=== PATIENT | male | born 1955 | race Caucasian/White ===

== ENCOUNTER → 2017-01-23 | Outpatient (CLI) | payer OTHER ==
[~2017-01-23] MED LIST: ALBU8.5H5 INH; IBUP200C8 PO; LORA1TAB PO
[2017-01-23 17:02] LABS: BLOOD UREA NITROGEN 18 mg/dL (7-18)
[2017-01-23 17:03] LABS: ASPARTATE AMINO TRANSFERASE 17 U/L (15-37); C-REACTIVE PROTEIN, QUANT 0.18 mg/dL (0.02-0.49)
== END | disposition home or self-care (01) ==
LOC: LAB 16:30
PROVIDERS: ATTEND Internal Medicine Rheumatology
DX: M06.9 Rheumatoid arthritis, unspecified (principal); E53.8 Deficiency of other specified B group vitamins; E55.9 Vitamin D deficiency, unspecified; Z79.899 Other long term (current) drug therapy
CPT/HCPCS: 36415; 80053; 82306; 82607; 85025; 85651; 86140

== ENCOUNTER → 2017-05-13 | Outpatient (CLI) | payer OTHER ==
[2017-05-13 06:12] LABS: HEMATOCRIT 46.1 % (39.2-51.8); HEMOGLOBIN 15.5 g/dL (13.7-18.0); WHITE BLOOD COUNT 6.8 x10^3/uL (3.4-10)
[2017-05-13 06:22] LABS: BLOOD UREA NITROGEN 16 mg/dL (7-18)
[2017-05-13 06:26] LABS: ASPARTATE AMINO TRANSFERASE 11 U/L (15-37); C-REACTIVE PROTEIN, QUANT 0.11 mg/dL (0.02-0.49)
== END | disposition home or self-care (01) ==
LOC: LAB 05:41
PROVIDERS: ATTEND Internal Medicine Rheumatology
DX: M06.9 Rheumatoid arthritis, unspecified (principal); Z79.899 Other long term (current) drug therapy
CPT/HCPCS: 36415; 80053; 85025; 85651; 86140

== ENCOUNTER 2018-01-03 11:38 | Inpatient (IN) | payer MEDICARE, OTHER ==
[~2018-01-03] VITALS: Ht 177.8 cm; Wt 92.5 kg
[2018-01-03] MEDS ORDERED: KETOROLAC 30 MG/1 ML ONE (12:30)
[2018-01-03] MEDS ORDERED: methylPREDNISolone SOD SUCC 125 MG/2 ML ONE (12:30)
[2018-01-03] MEDS ORDERED: KETOROLAC 60 MG/2 ML IVPush ONE (12:30)
[2018-01-03] MEDS ORDERED: methylPREDNISolone SOD SUCC 125 MG/2 ML IVPush ONE (12:30)
[2018-01-03] MEDS ORDERED: ONDANSETRON ODT 4 MG PO PRN ×2 (12:30→17:30)
[2018-01-03] MEDS ORDERED: ONDANSETRON ODT 4 MG ONE (12:30)
[2018-01-03] MEDS ORDERED: HYDROmorphone 2 MG/ML, 1ML ONE ×2 (12:30→14:12)
[2018-01-03] MEDS: HYDROmorphone 1 MG/ML, 1ML IVPush PRN ×2 (12:35→14:17)
[2018-01-03 12:37] LABS: BASOPHILS # (AUTO) 0.06 x10^3/uL (0-0.1); BASOPHILS % (AUTO) 1 % (0-1); EOSINOPHILS # (AUTO) 0.01 x10^3/uL (0-0.4); EOSINOPHILS % (AUTO) 0 % (1-7); LYMPHOCYTES # (AUTO) 1.34 x10^3/uL (1-3.4); LYMPHOCYTES % (AUTO) 12 % (22-44); MD NO; MEAN CORPUSCULAR HEMOGLOBIN 30.8 pg (27.5-34.5); MEAN CORPUSCULAR HGB CONC 33.6 g/dL (33.2-36.2); MEAN CORPUSCULAR VOLUME 91.8 fL (81-97); MEAN PLATELET VOLUME 7.1 fL (7.4-10.4); MONOCYTES % (AUTO) 4 % (2-9); NEUTROPHILS # (AUTO) 9.07 x10^3/uL (1.8-6.8); NEUTROPHILS % (AUTO) 83 % (42-75); PLATELET COUNT 318 x10^3/uL (130-400); RED BLOOD COUNT 5.46 x10^6/uL (4.38-5.82); RED CELL DISTRIBUTION WIDTH 13.5 % (9.4-14.8)
[2018-01-03 12:47] LABS: ANION GAP 10 mmol/L (5-15); CALCIUM 9.1 mg/dL (8.5-10.1); CHLORIDE 102 mmol/L (98-107)
[2018-01-03] MEDS ORDERED: TIOT18CA INH (14:31)
[2018-01-03] MEDS ORDERED: METHADONE PO (14:31)
[2018-01-03 16:20] VITALS: BP 186/116
[2018-01-03] MEDS ORDERED: KETOROLAC 30 MG/1 ML IVPush PRN (17:00)
[2018-01-03] MEDS: PANTOPRAZOLE 40 MG IV IVPush SCH (17:04)
[2018-01-03] MEDS: HYDROmorphone 2 MG/ML, 1ML IVPush PRN ×4 (17:05→23:48)
[2018-01-03] MEDS: hydrALAzine 20 MG/ML, 1ML IV PRN (17:05)
[2018-01-03 17:12] LABS: INTERNATIONAL NORMALIZED RATIO 0.99 (0.93-1.1); PROTHROMBIN TIME 10.2 Seconds (9.6-11.5)
[2018-01-03] MEDS ORDERED: ONDANSETRON 2MG/ML, 2ML IVPush PRN (17:30)
[2018-01-03] MEDS ORDERED: DOCUSATE 100 MG CAPSULE PO PRN (17:30)
[2018-01-03] MEDS: NICOTINE 14MG/24 HR PATCH.TD24 TD SCH (18:18)
[2018-01-03] MEDS: D5%-0.45% NACL 1,000 ML IV SCH (18:19)
[2018-01-03 19:38] VITALS: BP 145/89
[2018-01-03] MEDS: methylPREDNISolone SOD SUCC 125 MG/2 ML IVPush SCH (20:38)
[2018-01-03 23:32] LABS: MICROSCOPIC AUTO
[2018-01-03 23:38] LABS: CULTURE INDICATED? NO
[2018-01-04] MEDS: ACETAMINOPHEN 325 MG TABLET PO PRN ×2 (01:11→14:27)
[2018-01-04] MEDS: HYDROmorphone 2 MG/ML, 1ML IVPush PRN ×10 (01:49→23:48)
[2018-01-04 02:12] VITALS: BP 151/92
[2018-01-04] MEDS: D5%-0.45% NACL 1,000 ML IV SCH ×2 (03:15→13:33)
[2018-01-04] MEDS: methylPREDNISolone SOD SUCC 125 MG/2 ML IVPush SCH ×3 (04:27→20:02)
[2018-01-04 04:41] LABS: BASOPHILS # (AUTO) 0.07 x10^3/uL (0-0.1); BASOPHILS % (AUTO) 1 % (0-1); EOSINOPHILS % (AUTO) 0 % (1-7); LYMPHOCYTES # (AUTO) 0.83 x10^3/uL (1-3.4); LYMPHOCYTES % (AUTO) 8 % (22-44); MD NO; MEAN CORPUSCULAR HEMOGLOBIN 30.2 pg (27.5-34.5); MEAN CORPUSCULAR HGB CONC 33.4 g/dL (33.2-36.2); MEAN CORPUSCULAR VOLUME 90.3 fL (81-97); MEAN PLATELET VOLUME 7.4 fL (7.4-10.4); MONOCYTES # (AUTO) 0.12 x10^3/uL (0.2-0.8); MONOCYTES % (AUTO) 1 % (2-9); NEUTROPHILS # (AUTO) 9.11 x10^3/uL (1.8-6.8); NEUTROPHILS % (AUTO) 90 % (42-75); PLATELET COUNT 282 x10^3/uL (130-400); RED BLOOD COUNT 5.36 x10^6/uL (4.38-5.82); RED CELL DISTRIBUTION WIDTH 13.6 % (9.4-14.8)
[2018-01-04 04:46] LABS: CHLORIDE 103 mmol/L (98-107)
[2018-01-04 04:49] LABS: ANION GAP 8 mmol/L (5-15); CALCIUM 8.7 mg/dL (8.5-10.1); CREATININE 0.68 mg/dL (0.7-1.3)
[2018-01-04] MEDS: PANTOPRAZOLE 40 MG IV IVPush SCH ×2 (05:24→16:36)
[2018-01-04 08:30] VITALS: BP 180/99
[2018-01-04] MEDS: hydrALAzine 20 MG/ML, 1ML IV PRN (09:02)
[2018-01-04] MEDS ORDERED: PNEUMOCOCCAL 23 VACCINE IM-VACC ONE (12:00)
[2018-01-04 12:22] LABS: MEAN CORPUSCULAR HEMOGLOBIN 30.6 pg (27.5-34.5); MEAN CORPUSCULAR HGB CONC 33.8 g/dL (33.2-36.2); MEAN CORPUSCULAR VOLUME 90.5 fL (81-97); MEAN PLATELET VOLUME 7.3 fL (7.4-10.4); PLATELET COUNT 281 x10^3/uL (130-400); RED BLOOD COUNT 5.23 x10^6/uL (4.38-5.82); RED CELL DISTRIBUTION WIDTH 13.8 % (9.4-14.8)
[2018-01-04 12:26] LABS: ANION GAP 10 mmol/L (5-15); CALCIUM 8.5 mg/dL (8.5-10.1); CHLORIDE 103 mmol/L (98-107)
[2018-01-04 12:46] LABS: INTERNATIONAL NORMALIZED RATIO 1.05 (0.93-1.1); PROTHROMBIN TIME 10.8 Seconds (9.6-11.5)
[2018-01-04 13:03] LABS: BASOPHILS # (AUTO) 0.06 x10^3/uL (0-0.1); BASOPHILS % (AUTO) 1 % (0-1); EOSINOPHILS % (AUTO) 0 % (1-7); LYMPHOCYTES # (AUTO) 0.59 x10^3/uL (1-3.4); LYMPHOCYTES % (AUTO) 5 % (22-44); MD SCAN; MONOCYTES % (AUTO) 2 % (2-9); NEUTROPHILS % (AUTO) 94 % (42-75)
[2018-01-04 14:00] VITALS: BP 145/79
[2018-01-04] MEDS ORDERED: POTASSIUM CHLORIDE 20 MEQ in D5%-0.45% NACL 1,000 ML IV SCH (17:02)
[2018-01-04] MEDS: NICOTINE 14MG/24 HR PATCH.TD24 TD SCH (17:30)
[2018-01-04 18:47] VITALS: BP 145/83
[2018-01-04] MEDS: POTASSIUM CHLORIDE 20 MEQ in D5%-0.45% NACL 1,000 ML IV SCH (20:20)
[2018-01-05 00:40] VITALS: BP 151/89
[2018-01-05] MEDS: HYDROmorphone 2 MG/ML, 1ML IVPush PRN ×6 (01:49→13:18)
[2018-01-05] MEDS: methylPREDNISolone SOD SUCC 125 MG/2 ML IVPush SCH ×3 (04:18→20:00)
[2018-01-05] MEDS: POTASSIUM CHLORIDE 20 MEQ in D5%-0.45% NACL 1,000 ML IV SCH (04:18)
[2018-01-05] MEDS: PANTOPRAZOLE 40 MG IV IVPush SCH ×2 (04:49→17:00)
[2018-01-05 05:38] LABS: MEAN CORPUSCULAR VOLUME 91.4 fL (81-97); MEAN PLATELET VOLUME 7.7 fL (7.4-10.4); PLATELET COUNT 284 x10^3/uL (130-400); RED CELL DISTRIBUTION WIDTH 13.8 % (9.4-14.8)
[2018-01-05 05:41] LABS: CHLORIDE 104 mmol/L (98-107)
[2018-01-05 06:05] LABS: ANION GAP 8 mmol/L (5-15); CALCIUM 8.5 mg/dL (8.5-10.1); CREATININE 0.71 mg/dL (0.7-1.3)
[2018-01-05 06:16] LABS: BASOPHILS # (AUTO) 0.02 x10^3/uL (0-0.1); BASOPHILS % (AUTO) 0 % (0-1); EOSINOPHILS % (AUTO) 0 % (1-7); LYMPHOCYTES # (AUTO) 0.66 x10^3/uL (1-3.4); LYMPHOCYTES % (AUTO) 3 % (22-44); MD SCAN; MONOCYTES # (AUTO) 0.54 x10^3/uL (0.2-0.8); MONOCYTES % (AUTO) 3 % (2-9); NEUTROPHILS # (AUTO) 18.14 x10^3/uL (1.8-6.8); NEUTROPHILS % (AUTO) 94 % (42-75)
[2018-01-05 06:53] VITALS: BP 160/98
[2018-01-05] MEDS ORDERED: BUPIVACAINE/PF 0.25% ONE (07:11)
[2018-01-05] MEDS ORDERED: TRANEXAMIC ACID 100 MG/ML, 10ML ONE ×2 (07:11)
[2018-01-05] MEDS ORDERED: THROMBIN 20,000 UNIT VIAL TP ONE (07:11)
[2018-01-05] MEDS ORDERED: VANCOMYCIN 1,000 MG ONE (07:12)
[2018-01-05] MEDS ORDERED: EPINEPHRINE 1 MG/ML, 1ML ONE (07:12)
[2018-01-05] MEDS ORDERED: BACITRACIN 50,000 UNIT ONE (07:52)
[2018-01-05] MEDS: D5%-0.45% NACL 1,000 ML IV SCH ×2 (11:12→21:00)
[2018-01-05 12:41] VITALS: BP 161/95
[2018-01-05] MEDS ORDERED: FENTANYL PF 100 MCG/2ML ONE ×5 (16:14→23:36)
[2018-01-05] MEDS ORDERED: MIDAZOLAM 1 MG/ML, 2ML ONE ×2 (16:14→23:36)
[2018-01-05] MEDS ORDERED: PROPOFOL 50 ML ONE ×5 (17:19→20:25)
[2018-01-05] MEDS: NICOTINE 14MG/24 HR PATCH.TD24 TD SCH (17:30)
[2018-01-05] MEDS ORDERED: BUPIVACAINE/PF-EPI 0.25% 1:200K IM ONE (17:47)
[2018-01-05] MEDS ORDERED: HYDROcodone/APAP 7.5-325MG/15ML UDC PO PRN (19:00)
[2018-01-05] MEDS ORDERED: MIDAZOLAM 1 MG/ML, 2ML IV PRN (19:00)
[2018-01-05] MEDS ORDERED: EPHEDRINE 50 MG/ML, 1ML IVPush PRN (19:00)
[2018-01-05] MEDS ORDERED: MEPERIDINE/PF 25MG/0.5ML IVPush PRN (19:00)
[2018-01-05] MEDS ORDERED: LABETALOL 5MG/ML, 20ML IV PRN (19:00)
[2018-01-05] MEDS ORDERED: PROMETHAZINE 25 MG/ML, 1ML IV PRN (19:00)
[2018-01-05] MEDS ORDERED: ACETAMINOPHEN 325 MG TABLET PO PRN (19:00)
[2018-01-05] MEDS ORDERED: OXYcodone 5 MG/5 ML ORAL.SOL UDC PO PRN (19:00)
[2018-01-05] MEDS ORDERED: ALBUTEROL SULFATE 2.5 MG/3 ML NPPB PRN (19:00)
[2018-01-05] MEDS ORDERED: ALBUTEROL/IPRATROPIUM 2.5MG/0.5MG, 3 ML NPPB PRN (19:00)
[2018-01-05] MEDS ORDERED: ONDANSETRON ODT 8 MG PO PRN (19:00)
[2018-01-05] MEDS ORDERED: hydrALAzine 20 MG/ML, 1ML IV PRN (19:00)
[2018-01-05] MEDS ORDERED: BUPIVACAINE/PF-EPI 0.25% 1:200K INFIL ONE (20:55)
[2018-01-05] MEDS ORDERED: VANCOMYCIN 1,000 MG IVPB ONE (21:02)
[2018-01-05] MEDS ORDERED: CEFAZOLIN 1,000 MG ONE (21:10)
[2018-01-05] MEDS ORDERED: DEXAMETHASONE 4 MG/ML, 1ML ONE (21:10)
[2018-01-05] MEDS ORDERED: ONDANSETRON 2MG/ML, 2ML ONE (21:10)
[2018-01-05] MEDS ORDERED: SUCCINYLCHOLINE 20 MG/ML, 10ML ONE (21:10)
[2018-01-05] MEDS ORDERED: PROPOFOL 10 MG/ML, 20ML ONE (21:10)
[2018-01-05] MEDS ORDERED: ACETAMINOPHEN 650 MG/20.3 ML UDC ONE (21:28)
[2018-01-05] MEDS ORDERED: OXYcodone 5 MG/5 ML ORAL.SOL UDC ONE (21:29)
[2018-01-05] MEDS ORDERED: HYDROmorphone PCA 30 MG/30 ML IV PRN (21:30)
[2018-01-05] MEDS ORDERED: ALBUTEROL/IPRATROPIUM 2.5MG/0.5MG, 3 ML ONE (21:52)
[2018-01-05] MEDS: HYDROmorphone PCA 30 MG/30 ML IV PRN (22:34)
[2018-01-05] MEDS: FENTANYL PF 100 MCG/2ML IV PRN ×5 (22:37→23:39)
[2018-01-05] MEDS ORDERED: HYDROmorphone 2 MG/ML, 1ML ONE (22:43)
[2018-01-05] MEDS: HYDROmorphone 1 MG/ML, 1ML IV PRN ×4 (22:46→23:37)
[2018-01-05] MEDS: DIAZEPAM 5 MG/ML, 2ML IVPush PRN ×2 (23:00→23:23)
[2018-01-05] MEDS ORDERED: MEPERIDINE/PF 25MG/0.5ML ONE (23:36)
[2018-01-06 00:44] VITALS: BP 149/78
[2018-01-06] MEDS ORDERED: PHARMACY MAY ADJ FOR RENAL FX MC PRN (01:00)
[2018-01-06] MEDS ORDERED: PROMETHAZINE 25 MG/ML, 1ML IM PRN (03:00)
[2018-01-06] MEDS ORDERED: ALBUTEROL SULFATE 2.5 MG/3 ML NPPB PRN (03:00)
[2018-01-06] MEDS: LABETALOL 5MG/ML, 20ML IV SCH ×3 (03:00→17:31)
[2018-01-06] MEDS ORDERED: IPRATROPIUM 0.5 MG/2.5 ML INHA HHN SCH (03:00)
[2018-01-06] MEDS ORDERED: ACETAMINOPHEN 650 MG SUPP PR PRN (03:00)
[2018-01-06] MEDS ORDERED: DIAZEPAM 5 MG/ML, 2ML IV PRN (03:00)
[2018-01-06] MEDS ORDERED: LABETALOL 5MG/ML, 20ML IV PRN (03:00)
[2018-01-06] MEDS ORDERED: BISACODYL 10 MG SUPP PR PRN (03:00)
[2018-01-06] MEDS ORDERED: SODIUM CHLORIDE 0.9% 1,000ML IVBOLUS PRN (03:00)
[2018-01-06] MEDS ORDERED: ONDANSETRON 2MG/ML, 2ML IV PRN (03:00)
[2018-01-06] MEDS ORDERED: ALBUTEROL/IPRATROPIUM 2.5MG/0.5MG, 3 ML ONE (03:03)
[2018-01-06] MEDS: D5%-0.9% NACL+KCL 20MEQ 1,000 ML IV SCH ×2 (03:19→14:47)
[2018-01-06] MEDS: CEFAZOLIN PMX 1GM/50ML 50 ML IVPB SCH ×2 (03:19→11:37)
[2018-01-06] MEDS: DEXAMETHASONE 4 MG/ML, 1ML IV PRN (03:22)
[2018-01-06] MEDS: DIAZEPAM 5 MG TABLET PO PRN ×4 (03:22→21:39)
[2018-01-06] MEDS ORDERED: ALBUTEROL/IPRATROPIUM 2.5MG/0.5MG, 3 ML NPPB PRN (03:30)
[2018-01-06 03:35] VITALS: BP 159/87
[2018-01-06] MEDS: OXYcodone IR 5MG TABLET PO PRN ×6 (04:27→20:37)
[2018-01-06] MEDS: ACETAMINOPHEN 500 MG TABLET PO PRN ×3 (04:27→20:37)
[2018-01-06 05:15] LABS: MEAN CORPUSCULAR HEMOGLOBIN 30.7 pg (27.5-34.5); MEAN CORPUSCULAR HGB CONC 33.6 g/dL (33.2-36.2); MEAN CORPUSCULAR VOLUME 91.2 fL (81-97); MEAN PLATELET VOLUME 7.4 fL (7.4-10.4); PLATELET COUNT 250 x10^3/uL (130-400); RED BLOOD COUNT 4.49 x10^6/uL (4.38-5.82); RED CELL DISTRIBUTION WIDTH 13.6 % (9.4-14.8)
[2018-01-06 05:20] LABS: ANION GAP 9 mmol/L (5-15); CALCIUM 8.3 mg/dL (8.5-10.1); CHLORIDE 103 mmol/L (98-107); CREATININE 0.91 mg/dL (0.7-1.3)
[2018-01-06 05:40] LABS: BASOPHILS # (AUTO) 0.01 x10^3/uL (0-0.1); BASOPHILS % (AUTO) 0 % (0-1); EOSINOPHILS # (AUTO) 0.01 x10^3/uL (0-0.4); EOSINOPHILS % (AUTO) 0 % (1-7); LYMPHOCYTES # (AUTO) 0.45 x10^3/uL (1-3.4); LYMPHOCYTES % (AUTO) 2 % (22-44); MD SCAN; MONOCYTES # (AUTO) 0.92 x10^3/uL (0.2-0.8); MONOCYTES % (AUTO) 4 % (2-9); NEUTROPHILS # (AUTO) 20.51 x10^3/uL (1.8-6.8); NEUTROPHILS % (AUTO) 94 % (42-75)
[2018-01-06] MEDS: ALBUTEROL/IPRATROPIUM 2.5MG/0.5MG, 3 ML NPPB SCH ×4 (07:00→20:00)
[2018-01-06 07:45] VITALS: BP 160/84
[2018-01-06] MEDS: SENNA/DOCUSATE TABLET PO SCH (09:36)
[2018-01-06] MEDS: LORazepam 1MG TABLET PO PRN (10:42)
[2018-01-06 14:01] VITALS: BP 166/98
[2018-01-06 14:40] VITALS: BP 152/88
[2018-01-06] MEDS ORDERED: ZOLPIDEM 5MG TABLET PO PRN (21:00)
[2018-01-06 21:13] VITALS: BP 141/94
[2018-01-07] MEDS: OXYcodone IR 5MG TABLET PO PRN ×7 (00:12→21:38)
[2018-01-07] MEDS: D5%-0.9% NACL+KCL 20MEQ 1,000 ML IV SCH ×3 (00:12→19:19)
[2018-01-07 02:10] VITALS: BP 159/100
[2018-01-07] MEDS: LORazepam 1MG TABLET PO PRN (02:28)
[2018-01-07 03:54] VITALS: BP 166/86
[2018-01-07] MEDS: LABETALOL 5MG/ML, 20ML IV SCH (03:56)
[2018-01-07] MEDS: HYDROmorphone PCA 30 MG/30 ML IV PRN (04:36)
[2018-01-07] MEDS: ACETAMINOPHEN 500 MG TABLET PO PRN ×2 (04:38→17:58)
[2018-01-07] MEDS: DIAZEPAM 5 MG TABLET PO PRN ×4 (04:38→23:01)
[2018-01-07 05:07] LABS: BASOPHILS % (AUTO) 0 % (0-1); EOSINOPHILS # (AUTO) 0.01 x10^3/uL (0-0.4); EOSINOPHILS % (AUTO) 0 % (1-7); LYMPHOCYTES # (AUTO) 0.79 x10^3/uL (1-3.4); LYMPHOCYTES % (AUTO) 6 % (22-44); MD NO; MEAN CORPUSCULAR HEMOGLOBIN 30.9 pg (27.5-34.5); MEAN CORPUSCULAR VOLUME 90.9 fL (81-97); MEAN PLATELET VOLUME 7.7 fL (7.4-10.4); MONOCYTES # (AUTO) 0.58 x10^3/uL (0.2-0.8); MONOCYTES % (AUTO) 4 % (2-9); NEUTROPHILS # (AUTO) 12.18 x10^3/uL (1.8-6.8); NEUTROPHILS % (AUTO) 90 % (42-75); PLATELET COUNT 208 x10^3/uL (130-400); RED BLOOD COUNT 4.34 x10^6/uL (4.38-5.82); RED CELL DISTRIBUTION WIDTH 14.1 % (9.4-14.8)
[2018-01-07 05:12] LABS: CALCIUM 7.7 mg/dL (8.5-10.1); CHLORIDE 103 mmol/L (98-107)
[2018-01-07 05:18] LABS: ALBUMIN 2.6 g/dL (3.4-5.0); ANION GAP 9 mmol/L (5-15); CREATININE 0.65 mg/dL (0.7-1.3)
[2018-01-07] MEDS ORDERED: SODIUM PHOSPHATE 20 MMOL in SODIUM CHLORIDE 0.9% 500 ML IV ONE (07:00)
[2018-01-07] MEDS: ALBUTEROL/IPRATROPIUM 2.5MG/0.5MG, 3 ML NPPB SCH ×4 (07:29→19:13)
[2018-01-07 08:00] VITALS: BP 189/109
[2018-01-07] MEDS: SENNA/DOCUSATE TABLET PO SCH (08:12)
[2018-01-07] MEDS ORDERED: hydrALAzine 20 MG/ML, 1ML IV PRN (08:30)
[2018-01-07] MEDS ORDERED: LABETALOL 5MG/ML, 20ML IVPush PRN (08:30)
[2018-01-07 09:11] VITALS: BP 136/88
[2018-01-07] MEDS: DEXAMETHASONE 4 MG/ML, 1ML IV PRN ×2 (10:26→16:52)
[2018-01-07 14:59] VITALS: BP 140/85
[2018-01-07 19:36] VITALS: BP 139/85
[2018-01-08] MEDS: OXYcodone IR 5MG TABLET PO PRN ×5 (01:22→19:21)
[2018-01-08 03:08] VITALS: BP 140/86
[2018-01-08 05:08] LABS: BASOPHILS % (AUTO) 0 % (0-1); EOSINOPHILS % (AUTO) 0 % (1-7); LYMPHOCYTES # (AUTO) 0.72 x10^3/uL (1-3.4); LYMPHOCYTES % (AUTO) 5 % (22-44); MD NO; MEAN CORPUSCULAR HEMOGLOBIN 30.8 pg (27.5-34.5); MEAN CORPUSCULAR HGB CONC 33.4 g/dL (33.2-36.2); MEAN CORPUSCULAR VOLUME 92.2 fL (81-97); MEAN PLATELET VOLUME 7.9 fL (7.4-10.4); MONOCYTES # (AUTO) 0.72 x10^3/uL (0.2-0.8); MONOCYTES % (AUTO) 5 % (2-9); NEUTROPHILS # (AUTO) 13.98 x10^3/uL (1.8-6.8); NEUTROPHILS % (AUTO) 91 % (42-75); PLATELET COUNT 204 x10^3/uL (130-400); RED BLOOD COUNT 4.25 x10^6/uL (4.38-5.82); RED CELL DISTRIBUTION WIDTH 13.8 % (9.4-14.8)
[2018-01-08] MEDS: D5%-0.9% NACL+KCL 20MEQ 1,000 ML IV SCH ×2 (05:41→16:00)
[2018-01-08 06:53] VITALS: BP 163/91
[2018-01-08] MEDS: ALBUTEROL/IPRATROPIUM 2.5MG/0.5MG, 3 ML NPPB SCH ×4 (07:08→19:31)
[2018-01-08] MEDS: DIAZEPAM 5 MG TABLET PO PRN ×2 (07:46→22:55)
[2018-01-08] MEDS: SENNA/DOCUSATE TABLET PO SCH (07:46)
[2018-01-08] MEDS: MAGNESIUM HYDROXIDE 8%, 30ML UDC PO PRN (07:46)
[2018-01-08] MEDS: KETOROLAC 30 MG/1 ML IV PRN (09:44)
[2018-01-08 12:19] VITALS: BP 145/77
[2018-01-08] MEDS: HYDROmorphone PCA 30 MG/30 ML IV PRN (14:54)
[2018-01-08 16:22] VITALS: BP 132/92
[2018-01-08] MEDS ORDERED: DIAZEPAM 5 MG/ML, 2ML IV PRN (18:30)
[2018-01-08 19:23] VITALS: BP 131/78
[2018-01-09] MEDS: D5%-0.9% NACL+KCL 20MEQ 1,000 ML IV SCH (01:02)
[2018-01-09] MEDS: OXYcodone IR 5MG TABLET PO PRN ×3 (01:03→08:05)
[2018-01-09 01:07] VITALS: BP 142/89
[2018-01-09 03:55] VITALS: BP 136/80
[2018-01-09 05:22] LABS: BASOPHILS # (AUTO) 0.04 x10^3/uL (0-0.1); BASOPHILS % (AUTO) 0 % (0-1); EOSINOPHILS # (AUTO) 0.24 x10^3/uL (0-0.4); EOSINOPHILS % (AUTO) 2 % (1-7); LYMPHOCYTES # (AUTO) 1.49 x10^3/uL (1-3.4); LYMPHOCYTES % (AUTO) 11 % (22-44); MD NO; MEAN CORPUSCULAR HEMOGLOBIN 30.2 pg (27.5-34.5); MEAN CORPUSCULAR HGB CONC 33.4 g/dL (33.2-36.2); MEAN CORPUSCULAR VOLUME 90.4 fL (81-97); MEAN PLATELET VOLUME 7.6 fL (7.4-10.4); MONOCYTES # (AUTO) 0.48 x10^3/uL (0.2-0.8); MONOCYTES % (AUTO) 4 % (2-9); NEUTROPHILS # (AUTO) 11.25 x10^3/uL (1.8-6.8); NEUTROPHILS % (AUTO) 83 % (42-75); PLATELET COUNT 244 x10^3/uL (130-400); RED BLOOD COUNT 4.19 x10^6/uL (4.38-5.82); RED CELL DISTRIBUTION WIDTH 13.9 % (9.4-14.8)
[2018-01-09] MEDS: ALBUTEROL/IPRATROPIUM 2.5MG/0.5MG, 3 ML NPPB SCH ×4 (06:49→19:41)
[2018-01-09 07:09] VITALS: BP 152/92
[2018-01-09] MEDS: SENNA/DOCUSATE TABLET PO SCH (08:05)
[2018-01-09] MEDS: DIAZEPAM 5 MG TABLET PO PRN ×2 (09:35→17:27)
[2018-01-09] MEDS: SODIUM CHLORIDE 0.9% 1,000 ML IV SCH (09:42)
[2018-01-09 13:11] VITALS: BP 146/84
[2018-01-09] MEDS ORDERED: HYDROmorphone 2MG TABLET ONE ×3 (14:15→22:02)
[2018-01-09] MEDS: HYDROmorphone 4MG TABLET PO PRN ×3 (14:16→22:04)
[2018-01-09] MEDS: KETOROLAC 30 MG/1 ML IV PRN (16:19)
[2018-01-09] MEDS ORDERED: MAGNESIUM CITRATE 300ML ORAL SOL PO ONE (18:30)
[2018-01-09] MEDS ORDERED: DEXAMETHASONE 4 MG/ML, 1ML IV PRN (18:30)
[2018-01-09] MEDS ORDERED: METHYLNALTREXONE 12 MG/0.6 ML SQ ONE (18:30)
[2018-01-09 19:07] VITALS: BP 111/74
[2018-01-09] MEDS: MAGNESIUM HYDROXIDE 8%, 30ML UDC PO PRN (21:54)
[2018-01-10 00:44] VITALS: BP 133/79
[2018-01-10] MEDS ORDERED: HYDROmorphone 2MG TABLET ONE ×4 (02:46→17:00)
[2018-01-10] MEDS: HYDROmorphone 4MG TABLET PO PRN ×4 (02:48→17:02)
[2018-01-10] MEDS: DIAZEPAM 5 MG TABLET PO PRN ×2 (03:35→10:20)
[2018-01-10] MEDS: CARVEDILOL 6.25 MG TABLET PO SCH ×2 (05:33→17:03)
[2018-01-10 05:35] LABS: BASOPHILS # (AUTO) 0.01 x10^3/uL (0-0.1); BASOPHILS % (AUTO) 0 % (0-1); EOSINOPHILS # (AUTO) 0.27 x10^3/uL (0-0.4); EOSINOPHILS % (AUTO) 3 % (1-7); LYMPHOCYTES # (AUTO) 0.79 x10^3/uL (1-3.4); LYMPHOCYTES % (AUTO) 8 % (22-44); MD NO; MEAN CORPUSCULAR HEMOGLOBIN 30.9 pg (27.5-34.5); MEAN CORPUSCULAR HGB CONC 33.8 g/dL (33.2-36.2); MEAN CORPUSCULAR VOLUME 91.3 fL (81-97); MEAN PLATELET VOLUME 7.9 fL (7.4-10.4); MONOCYTES % (AUTO) 9 % (2-9); NEUTROPHILS # (AUTO) 8.52 x10^3/uL (1.8-6.8); NEUTROPHILS % (AUTO) 81 % (42-75); PLATELET COUNT 248 x10^3/uL (130-400); RED BLOOD COUNT 3.91 x10^6/uL (4.38-5.82); RED CELL DISTRIBUTION WIDTH 13.7 % (9.4-14.8)
[2018-01-10] MEDS: ALBUTEROL/IPRATROPIUM 2.5MG/0.5MG, 3 ML NPPB SCH ×3 (07:30→14:10)
[2018-01-10 08:17] VITALS: BP 137/65
[2018-01-10] MEDS: SENNA/DOCUSATE TABLET PO SCH (08:39)
[2018-01-10] MEDS ORDERED: CARV6.2512 PO (11:45)
[2018-01-10] MEDS ORDERED: BISA10SU65 PR (11:45)
[2018-01-10] MEDS ORDERED: BISA5TAB5 PO (11:45)
[2018-01-10] MEDS ORDERED: ACET500T71 PO (11:45)
[2018-01-10] MEDS: SODIUM CHLORIDE 0.9% 1,000 ML IV SCH ×2 (14:06)
[2018-01-10 14:24] VITALS: BP 136/87
[2018-01-10] MEDS: ACETAMINOPHEN 500 MG TABLET PO PRN (15:26)
== END 2018-01-10 18:03 | DRG 459 ==
LOC: ED 13:43 → EDIP 14:10 → 3NE 16:12 → 4NOR 01-05 19:15
PROVIDERS: ADMIT Internal Medicine; ATTEND Hospitalist
PROC: 00NY0ZZ Release Lumbar Spinal Cord, Open Approach (ICD-10-PCS; 2018-01-05)
PROC: 4A11X4G Monitoring of Peripheral Nervous Electrical Activity, Intraoperative, External Approach (ICD-10-PCS; 2018-01-05)
PROC: BR161ZZ Fluoroscopy of Lumbar Facet Joint(s) using Low Osmolar Contrast (ICD-10-PCS; 2018-01-05)
PROC: 07DR3ZZ Extraction of Iliac Bone Marrow, Percutaneous Approach (ICD-10-PCS; 2018-01-05)
PROC: 0ST20ZZ Resection of Lumbar Vertebral Disc, Open Approach (ICD-10-PCS; 2018-01-05)
PROC: 0SG00AJ Fusion of Lumbar Vertebral Joint with Interbody Fusion Device, Posterior Approach, Anterior Column, Open Approach (ICD-10-PCS; principal; 2018-01-05 16:00)
DX: M48.061 Spinal stenosis, lumbar region without neurogenic claudication (principal); E43 Unspecified severe protein-calorie malnutrition; E87.1 Hypo-osmolality and hyponatremia; F11.20 Opioid dependence, uncomplicated; G83.4 Cauda equina syndrome; D72.829 Elevated white blood cell count, unspecified; I10 Essential (primary) hypertension; M43.16 Spondylolisthesis, lumbar region; M51.16 Intervertebral disc disorders with radiculopathy, lumbar region; E66.9 Obesity, unspecified; E86.0 Dehydration; E87.6 Hypokalemia; F17.210 Nicotine dependence, cigarettes, uncomplicated; G89.29 Other chronic pain; G47.00 Insomnia, unspecified; J44.9 Chronic obstructive pulmonary disease, unspecified; R00.0 Tachycardia, unspecified; R26.2 Difficulty in walking, not elsewhere classified; R53.81 Other malaise; R79.89 Other specified abnormal findings of blood chemistry; Z68.29 Body mass index [BMI] 29.0-29.9, adult; Z80.0 Family history of malignant neoplasm of digestive organs; Z88.5 Allergy status to narcotic agent
CPT/HCPCS: 36415; 71045; 72100; 72148; 80048; 81001; 82040; 83735; 84100; 85025; 85610; 85730; 86850; 86900; 86923; 90732; 93005; 94640; 96374; 96375; 96376; C1713; J0171; J0690; J1100; J1170; J1885; J2175; J2250; J2405; J2704; J3010; J3360; J3370; J3480; J3490; J7620; Q0162; C1760; C1762; C1763; C9113; C9362; J0330; J0360; J2930; J7030; J7040

== ENCOUNTER 2018-02-13 12:01 | Emergency (ER) | payer MEDICARE ==
[~2018-02-13] VITALS: Ht 177.8 cm; Wt 92.8 kg
[~2018-02-13 12:01] MED LIST changes: +ACET500T71 PO; +BISA10SU65 PR; +BISA5TAB5 PO; +CARV6.2512 PO; +METHADONE PO; +TIOT18CA INH
[2018-02-13 12:04] VITALS: BP 154/89
== END 2018-02-13 14:08 | disposition home or self-care (01) ==
LOC: ED 14:02
DX: T81.30XA Disruption of wound, unspecified, initial encounter (principal); M06.9 Rheumatoid arthritis, unspecified; X58.XXXA Exposure to other specified factors, initial encounter; Y93.89 Activity, other specified; Y92.89 Other specified places as the place of occurrence of the external cause; Y99.8 Other external cause status
CPT/HCPCS: 10060; 99283

== ENCOUNTER → 2018-02-18 | Outpatient (CLI) | payer MEDICARE ==
[2018-02-18 11:58] LABS: ALANINE AMINOTRANSFERASE 19 U/L (12-78); ALBUMIN 3.4 g/dL (3.4-5.0); ANION GAP 9 mmol/L (5-15); CALCIUM 8.7 mg/dL (8.5-10.1); CHLORIDE 107 mmol/L (98-107); CREATININE 0.77 mg/dL (0.7-1.3)
[2018-02-18 12:00] LABS: ALKALINE PHOSPHATASE 90 U/L (45-117); BILIRUBIN,TOTAL 0.4 mg/dL (0.2-1.0); TOTAL PROTEIN 7.5 g/dL (6.4-8.2)
== END | disposition home or self-care (01) ==
LOC: LAB 11:19
PROVIDERS: ATTEND Anesthesiology
DX: Z01.810 Encounter for preprocedural cardiovascular examination (principal)
CPT/HCPCS: 36415; 80053

== ENCOUNTER 2018-03-13 12:10 | Inpatient (IN) | payer MEDICARE ==
[~2018-03-13] VITALS: Ht 177.8 cm; Wt 97.2 kg
[2018-03-13] MEDS ORDERED: SODIUM CHLORIDE 0.9% 1,000ML IVBOLUS ONE (13:00)
[2018-03-13] MEDS ORDERED: SODIUM CHLORIDE FLUSH 10ML SYR IVF ONE (13:00)
[2018-03-13] MEDS ORDERED: CEPH-368 PO (13:01)
[2018-03-13] MEDS ORDERED: OXYC10TA6 PO (13:01)
[2018-03-13] MEDS ORDERED: DIAZ5TAB4 PO (13:01)
[2018-03-13 13:11] LABS: MEAN CORPUSCULAR HEMOGLOBIN 30.9 pg (27.5-34.5); MEAN CORPUSCULAR HGB CONC 34.5 g/dL (33.2-36.2); MEAN CORPUSCULAR VOLUME 89.6 fL (81-97); MEAN PLATELET VOLUME 7.6 fL (7.4-10.4); PLATELET COUNT 326 x10^3/uL (130-400); RED BLOOD COUNT 4.44 x10^6/uL (4.38-5.82); RED CELL DISTRIBUTION WIDTH 14.5 % (9.4-14.8)
[2018-03-13 13:19] LABS: ALBUMIN 3.6 g/dL (3.4-5.0); ANION GAP 10 mmol/L (5-15); CALCIUM 8.7 mg/dL (8.5-10.1); CHLORIDE 103 mmol/L (98-107); CREATININE 0.95 mg/dL (0.7-1.3)
[2018-03-13] MEDS ORDERED: CEFTRIAXONE 1,000 MG in SODIUM CHLORIDE 0.9% 50 ML IVPB ONE (13:30)
[2018-03-13 13:42] LABS: MICROSCOPIC NOT IND
[2018-03-13 13:43] LABS: CULTURE INDICATED? NO
[2018-03-13] MEDS ORDERED: CEFTRIAXONE PMX 1GM/50ML 50 ML ONE (13:57)
[2018-03-13] MEDS ORDERED: GADOBUTROL 10 MMOL/10 ML PFS ONE (13:59)
[2018-03-13 14:01] LABS: BASOPHILS # (AUTO) 0.08 x10^3/uL (0-0.1); BASOPHILS % (AUTO) 0 % (0-1); EOSINOPHILS # (AUTO) 0.09 x10^3/uL (0-0.4); EOSINOPHILS % (AUTO) 1 % (1-7); LYMPHOCYTES # (AUTO) 1.35 x10^3/uL (1-3.4); LYMPHOCYTES % (AUTO) 7 % (22-44); MD SCAN; MONOCYTES # (AUTO) 0.61 x10^3/uL (0.2-0.8); MONOCYTES % (AUTO) 3 % (2-9); NEUTROPHILS # (AUTO) 16.31 x10^3/uL (1.8-6.8); NEUTROPHILS % (AUTO) 89 % (42-75)
[2018-03-13] MEDS ORDERED: VANCOMYCIN 1,800 MG in SODIUM CHLORIDE 0.9% 250 ML IV ONE (15:00)
[2018-03-13] MEDS ORDERED: VANCOMYCIN PER PHARMACY MC ONE (15:00)
[2018-03-13 15:06] LABS: HCT (SEDRATE) 39.8 % (39.2-51.8)
[2018-03-13] MEDS ORDERED: KETOROLAC 30 MG/1 ML ONE (15:17)
[2018-03-13] MEDS ORDERED: ONDANSETRON 2MG/ML, 2ML IVPush ONE (15:30)
[2018-03-13] MEDS ORDERED: ONDANSETRON 2MG/ML, 2ML IVPush PRN (15:30)
[2018-03-13] MEDS ORDERED: BISACODYL 10 MG SUPP PR PRN (15:30)
[2018-03-13] MEDS ORDERED: ENALAPRILAT 1.25 MG/ML, 2ML IVPush PRN (15:30)
[2018-03-13] MEDS ORDERED: DIAZEPAM 5 MG TABLET PO PRN (15:30)
[2018-03-13] MEDS ORDERED: ONDANSETRON ODT 4 MG PO PRN (15:30)
[2018-03-13] MEDS ORDERED: BUTALB/APAP/CAFFEINE 50MG/325MG/40MG PO PRN (15:30)
[2018-03-13] MEDS ORDERED: POLYETHYLENE GLYCOL 17 GM PACKET PO PRN (15:30)
[2018-03-13] MEDS ORDERED: LABETALOL 5MG/ML, 20ML IVPush PRN (15:30)
[2018-03-13] MEDS ORDERED: DOCUSATE 100 MG CAPSULE PO PRN (15:30)
[2018-03-13] MEDS ORDERED: HYDROmorphone 2 MG/ML, 1ML IVPush PRN (15:30)
[2018-03-13] MEDS: KETOROLAC 30 MG/1 ML IV PRN (15:51)
[2018-03-13] MEDS ORDERED: ALBUTEROL SULFATE 2.5 MG/3 ML NPPB PRN (16:30)
[2018-03-13 16:41] VITALS: BP 153/89
[2018-03-13] MEDS ORDERED: ALBUTEROL/IPRATROPIUM 2.5MG/0.5MG, 3 ML ONE (17:00)
[2018-03-13] MEDS: ALBUTEROL/IPRATROPIUM 2.5MG/0.5MG, 3 ML NPPB SCH ×2 (17:03→21:00)
[2018-03-13] MEDS: SODIUM CHLORIDE 0.9% 1,000 ML IV SCH (17:06)
[2018-03-13] MEDS: NICOTINE 7 MG/24 HR PATCH.TD24 TD SCH (17:07)
[2018-03-13] MEDS: HEPARIN 5,000 UNITS/ML, 1ML SQ SCH ×2 (17:07→21:10)
[2018-03-13] MEDS: CEPHALEXIN 500 MG CAPSULE PO SCH ×2 (17:08→21:09)
[2018-03-13] MEDS: CARVEDILOL 6.25 MG TABLET PO SCH (17:08)
[2018-03-13 19:34] VITALS: BP 117/74
[2018-03-13] MEDS ORDERED: IPRATROPIUM 0.5 MG/2.5 ML INHA NPPB SCH (21:00)
[2018-03-13] MEDS: LACTULOSE 10 GM/15 ML UDC PO SCH (21:09)
[2018-03-13] MEDS: OXYcodone IR 5MG TABLET PO PRN (21:45)
[2018-03-14 02:22] VITALS: BP 150/91
[2018-03-14] MEDS: OXYcodone IR 5MG TABLET PO PRN ×5 (02:39→23:52)
[2018-03-14] MEDS: ALBUTEROL/IPRATROPIUM 2.5MG/0.5MG, 3 ML NPPB SCH ×4 (02:44→21:00)
[2018-03-14] MEDS: SODIUM CHLORIDE 0.9% 1,000 ML IV SCH ×2 (04:47→12:09)
[2018-03-14] MEDS: HEPARIN 5,000 UNITS/ML, 1ML SQ SCH ×3 (05:39→23:51)
[2018-03-14] MEDS: CEPHALEXIN 500 MG CAPSULE PO SCH ×4 (05:39→21:18)
[2018-03-14] MEDS: CARVEDILOL 6.25 MG TABLET PO SCH ×2 (05:39→17:11)
[2018-03-14 05:44] LABS: BASOPHILS # (AUTO) 0.03 x10^3/uL (0-0.1); BASOPHILS % (AUTO) 0 % (0-1); EOSINOPHILS # (AUTO) 0.01 x10^3/uL (0-0.4); EOSINOPHILS % (AUTO) 0 % (1-7); LYMPHOCYTES # (AUTO) 0.99 x10^3/uL (1-3.4); LYMPHOCYTES % (AUTO) 7 % (22-44); MD NO; MEAN CORPUSCULAR HEMOGLOBIN 30.5 pg (27.5-34.5); MEAN CORPUSCULAR HGB CONC 33.6 g/dL (33.2-36.2); MEAN CORPUSCULAR VOLUME 90.6 fL (81-97); MEAN PLATELET VOLUME 7.9 fL (7.4-10.4); MONOCYTES # (AUTO) 0.81 x10^3/uL (0.2-0.8); MONOCYTES % (AUTO) 5 % (2-9); NEUTROPHILS # (AUTO) 13.53 x10^3/uL (1.8-6.8); NEUTROPHILS % (AUTO) 88 % (42-75); PLATELET COUNT 253 x10^3/uL (130-400); RED BLOOD COUNT 4.03 x10^6/uL (4.38-5.82); RED CELL DISTRIBUTION WIDTH 14.3 % (9.4-14.8)
[2018-03-14 05:58] LABS: ANION GAP 9 mmol/L (5-15); CALCIUM 8.2 mg/dL (8.5-10.1); CHLORIDE 104 mmol/L (98-107)
[2018-03-14 06:03] LABS: ALANINE AMINOTRANSFERASE 13 U/L (12-78); ALKALINE PHOSPHATASE 68 U/L (45-117); BILIRUBIN,TOTAL 1.1 mg/dL (0.2-1.0); CREATININE 0.67 mg/dL (0.7-1.3); TOTAL PROTEIN 6.9 g/dL (6.4-8.2)
[2018-03-14 07:54] VITALS: BP 138/87
[2018-03-14] MEDS: KETOROLAC 30 MG/1 ML IV PRN ×3 (08:22→21:18)
[2018-03-14] MEDS: ACETAMINOPHEN 325 MG TABLET PO PRN ×3 (08:24→17:08)
[2018-03-14] MEDS: SENNA/DOCUSATE TABLET PO SCH (08:26)
[2018-03-14] MEDS: BACLOFEN 10 MG TABLET PO PRN ×2 (08:28→17:09)
[2018-03-14] MEDS: LACTULOSE 10 GM/15 ML UDC PO SCH ×2 (08:29→21:19)
[2018-03-14] MEDS: NICOTINE 7 MG/24 HR PATCH.TD24 TD SCH (08:35)
[2018-03-14] MEDS: LIDODERM 5% PATCH TD PRN ×2 (08:44→13:00)
[2018-03-14] MEDS ORDERED: CEFTRIAXONE 1,000 MG IV SCH (12:00)
[2018-03-14] MEDS ORDERED: CEFTRIAXONE 1,000 MG in SODIUM CHLORIDE 0.9% 50 ML IVPB SCH (12:30)
[2018-03-14 14:45] VITALS: BP 119/73
[2018-03-14 19:21] VITALS: BP 111/71
[2018-03-15] MEDS: SODIUM CHLORIDE 0.9% 1,000 ML IV SCH (00:43)
[2018-03-15 00:48] VITALS: BP 147/89
[2018-03-15 05:31] VITALS: BP 145/78
[2018-03-15] MEDS: CARVEDILOL 6.25 MG TABLET PO SCH (05:34)
[2018-03-15] MEDS: KETOROLAC 30 MG/1 ML IV PRN (05:34)
[2018-03-15] MEDS: CEPHALEXIN 500 MG CAPSULE PO SCH (05:34)
[2018-03-15 07:00] VITALS: BP 131/86
[2018-03-15 07:01] LABS: BASOPHILS # (AUTO) 0.05 x10^3/uL (0-0.1); BASOPHILS % (AUTO) 0 % (0-1); EOSINOPHILS # (AUTO) 0.05 x10^3/uL (0-0.4); EOSINOPHILS % (AUTO) 0 % (1-7); LYMPHOCYTES # (AUTO) 0.91 x10^3/uL (1-3.4); LYMPHOCYTES % (AUTO) 8 % (22-44); MD NO; MEAN CORPUSCULAR HEMOGLOBIN 30.4 pg (27.5-34.5); MEAN CORPUSCULAR HGB CONC 33.9 g/dL (33.2-36.2); MEAN CORPUSCULAR VOLUME 89.7 fL (81-97); MEAN PLATELET VOLUME 7.3 fL (7.4-10.4); MONOCYTES # (AUTO) 0.75 x10^3/uL (0.2-0.8); MONOCYTES % (AUTO) 6 % (2-9); NEUTROPHILS % (AUTO) 86 % (42-75); PLATELET COUNT 232 x10^3/uL (130-400); RED BLOOD COUNT 3.92 x10^6/uL (4.38-5.82); RED CELL DISTRIBUTION WIDTH 14.3 % (9.4-14.8)
[2018-03-15 07:07] LABS: ANION GAP 9 mmol/L (5-15); CALCIUM 7.8 mg/dL (8.5-10.1); CHLORIDE 106 mmol/L (98-107); CREATININE 0.57 mg/dL (0.7-1.3)
[2018-03-15] MEDS: HEPARIN 5,000 UNITS/ML, 1ML SQ SCH (07:30)
[2018-03-15] MEDS ORDERED: LACT1CAP11 PO (07:56)
[2018-03-15] MEDS: SENNA/DOCUSATE TABLET PO SCH (08:03)
[2018-03-15] MEDS: LACTULOSE 10 GM/15 ML UDC PO SCH (08:35)
[2018-03-15 12:29] VITALS: BP 158/95
== END 2018-03-15 13:00 | disposition home or self-care (01) | DRG 862 ==
LOC: ED 13:12 → EDIP 15:27 → 3NE 16:14
PROVIDERS: ADMIT Internal Medicine; ATTEND Internal Medicine
DX: T81.4XXA Infection following a procedure, initial encounter (principal); A41.9 Sepsis, unspecified organism; G06.1 Intraspinal abscess and granuloma; E87.1 Hypo-osmolality and hyponatremia; G97.63 Postprocedural seroma of a nervous system organ or structure following a nervous system procedure; G83.4 Cauda equina syndrome; L02.212 Cutaneous abscess of back [any part, except buttock and flank]; F11.20 Opioid dependence, uncomplicated; J44.9 Chronic obstructive pulmonary disease, unspecified; F17.210 Nicotine dependence, cigarettes, uncomplicated; G89.29 Other chronic pain; M54.5 Low back pain; M54.10 Radiculopathy, site unspecified; M06.9 Rheumatoid arthritis, unspecified; I10 Essential (primary) hypertension; M48.061 Spinal stenosis, lumbar region without neurogenic claudication; Z80.0 Family history of malignant neoplasm of digestive organs; Y83.8 Other surgical procedures as the cause of abnormal reaction of the patient, or of later complication, without mention of misadventure at the time of the procedure; Y92.89 Other specified places as the place of occurrence of the external cause
CPT/HCPCS: 36415; 71045; 72158; 80048; 80053; 81003; 82040; 83605; 84145; 85025; 85651; 86141; 87040; 93306; 94640; 96365; 96375; 99285; A9585; J0696; J1644; J1885; J3370; J7620; J7030; J7050

== ENCOUNTER → 2018-03-19 | Outpatient (CLI) | payer MEDICARE ==
[~2018-03-19] MED LIST changes: +CEPH-368 PO; +DIAZ5TAB4 PO; +LACT1CAP11 PO; +OXYC10TA6 PO
== END | disposition home or self-care (01) ==
LOC: WOUND 13:19
PROVIDERS: ATTEND Internal Medicine
DX: Z02.9 Encounter for administrative examinations, unspecified (principal)

== ENCOUNTER 2020-12-27 08:01 | Emergency (ER) | payer MEDICARE ==
[~2020-12-27] VITALS: Ht 177.8 cm; Wt 100.8 kg
[~2020-12-27 08:01] MED LIST changes: +ACET500T64 PO; -ACET500T71 PO
[2020-12-27 08:03] VITALS: BP 146/77
--- NOTE | 2020-12-27 08:11 | NUR ---
ASSUMED CARE OF PT. PT SITTING ON BED. PT HERE FOR DENTAL PAIN AND ABX, HIS APPOINTMENT ISNT UNTIL 01/03. MD BEDSIDE.
--- NOTE | 2020-12-27 08:32 | NUR ---
Patient given discharge instructions and they have confirmed that they understand the instructions. Patient ambulatory with steady gait.
== END 2020-12-27 08:50 | disposition home or self-care (01) ==
LOC: ED 08:39
DX: K04.7 Periapical abscess without sinus (principal); K02.9 Dental caries, unspecified; I10 Essential (primary) hypertension; J44.9 Chronic obstructive pulmonary disease, unspecified; F17.200 Nicotine dependence, unspecified, uncomplicated
CPT/HCPCS: 99283